=== PATIENT | female | born 1965 | race Caucasian/White ===

== ENCOUNTER 2016-07-15 08:39 | Emergency (ER) | payer MEDICAID ==
[2016-07-15] MEDS ORDERED: PREDNISONE 20 MG TABLET PO ONE (09:36)
[2016-07-15] MEDS ORDERED: IPRATROPIUM/ALBUTEROL 0.5-2.5 MG/3 ML AMPUL NEB ONE (09:36)
[2016-07-15] MEDS ORDERED: ALBUTEROL SULFATE 0.083% NEB 2.5 MG/3 ML AMPUL NEB SCH (09:51)
[2016-07-15 10:21] VITALS: BP 118/74
--- NOTE | 2016-07-15 10:24 | ER Document Report ---
ED Medical Screen (RME) - General Chief Complaint: Cough Stated Complaint: HEADACHE AND COUGHING UP BLOOD Information source: Patient Notes: Patient reports three-day history of cough and headache. Patient complains of right-sided lung pain. Patient has had some hemoptysis. No fever. hx: Asthma, COPD I have greeted and performed a rapid initial assessment of this patient. A comprehensive ED assessment and evaluation of the patient, analysis of test results and completion of the medical decision making process will be conducted by additional ED providers. TRAVEL OUTSIDE OF THE [place] IN LAST 30 DAYS: No - Related Data Allergies/Adverse Reactions: etodolac [Etodolac] Allergy (Verified 07/15/16 08:55) naproxen [Naproxen] Allergy (Verified 07/15/16 08:55) NSAIDS (Non-Steroidal Anti-Inflamma [Nsaids] Allergy (Verified 07/15/16 08:55) Sulfa (Sulfonamide Antibiotics) Allergy (Verified 07/15/16 08:55) Past Medical History - Social History Chew tobacco use (# tins/day): Yes Drug Abuse: None - Past Medical History Cardiac Medical History: Reports: Hx Heart Attack - at age 24, Hx Hypertension Pulmonary Medical History: Reports: Hx Asthma, Hx COPD Renal/ Medical History: Denies: Hx Peritoneal Dialysis Past Surgical History: Reports: Hx Abdominal Surgery, Hx Section, Hx Cholecystectomy, Hx Hysterectomy, Hx Tubal Ligation - Immunizations Hx Diphtheria, Pertussis, Tetanus Vaccination: Yes Physical Exam - Vital signs Vitals: Temp Pulse Resp BP Pulse Ox 98.2 F 82 24 H 139/73 H 95 07/15/16 08:47 07/15/16 08:47 07/15/16 08:47 07/15/16 08:47 07/15/16 08:47 - Respiratory Respiratory status: No respiratory distress Breath sounds: Nonproductive cough, Rhonchi Course - Vital Signs Vital signs: Temp Pulse Resp BP Pulse Ox 98.2 F 82 16 118/74 98 07/15/16 08:47 07/15/16 10:21 07/15/16 10:21 07/15/16 10:21 07/15/16 10:21
--- NOTE | 2016-07-15 11:00 | ER Document Report ---
ED General - General Chief Complaint: Cough Stated Complaint: HEADACHE AND COUGHING UP BLOOD TRAVEL OUTSIDE OF THE [place] IN LAST 30 DAYS: No - HPI Patient complains to provider of: cough Notes: Patient reports three-day history of cough and headache. Patient complains of right-sided lung pain. Patient has had some small streaks of blood in her sputum and coughing. Patient is a smoker. Patient states that she continues to smoke. Denies any recent travel denies any recent antibiotics. Denies any other past medical history is a for COPD or asthma - Related Data Allergies/Adverse Reactions: etodolac [Etodolac] Allergy (Verified 07/15/16 08:55) naproxen [Naproxen] Allergy (Verified 07/15/16 08:55) NSAIDS (Non-Steroidal Anti-Inflamma [Nsaids] Allergy (Verified 07/15/16 08:55) Sulfa (Sulfonamide Antibiotics) Allergy (Verified 07/15/16 08:55) Past Medical History - General Information source: Patient - Social History Smoking Status: Current Every Day Smoker Chew tobacco use (# tins/day): Yes Drug Abuse: None Family History: Reviewed & Not Pertinent Patient has suicidal ideation: No Patient has homicidal ideation: No - Past Medical History Cardiac Medical History: Reports: Hx Heart Attack - at age 24, Hx Hypertension Pulmonary Medical History: Reports: Hx Asthma, Hx COPD Renal/ Medical History: Denies: Hx Peritoneal Dialysis Past Surgical History: Reports: Hx Abdominal Surgery, Hx Section, Hx Cholecystectomy, Hx Hysterectomy, Hx Tubal Ligation - Immunizations Hx Diphtheria, Pertussis, Tetanus Vaccination: Yes Review of Systems - Review of Systems Constitutional: No symptoms reported EENT: No symptoms reported Cardiovascular: No symptoms reported Respiratory: Cough, Short of breath Gastrointestinal: No symptoms reported Genitourinary: No symptoms reported Female Genitourinary: No symptoms reported Musculoskeletal: No symptoms reported Skin: No symptoms reported Hematologic/Lymphatic: No symptoms reported Neurological/Psychological: No symptoms reported -: Yes All other systems reviewed and negative Physical Exam - Vital signs Vitals: Temp Pulse Resp BP Pulse Ox 98.2 F 82 24 H 139/73 H 95 07/15/16 08:47 07/15/16 08:47 07/15/16 08:47 07/15/16 08:47 07/15/16 08:47 Interpretation: Normal - General General appearance: Appears well, Alert - HEENT Head: Normocephalic, Atraumatic Eyes: Normal Pupils: PERRL - Respiratory Respiratory status: No respiratory distress Chest status: Nontender Breath sounds: Normal Chest palpation: Normal - Cardiovascular Rhythm: Regular Heart sounds: Normal auscultation Murmur: No - Abdominal Inspection: Normal Distension: No distension Bowel sounds: Normal Tenderness: Nontender Organomegaly: No organomegaly - Back Back: Normal, Nontender - Extremities General upper extremity: Normal inspection, Nontender, Normal color, Normal ROM , Normal temperature General lower extremity: Normal inspection, Nontender, Normal color, Normal ROM , Normal temperature, Normal weight bearing. No: Moises's sign - Neurological Neuro grossly intact: Yes Cognition: Normal Orientation: AAOx4 [place] Coma Scale Eye Opening: Spontaneous Lisa Coma Scale Verbal: Oriented Lisa Coma Scale Motor: Obeys Commands [place] Coma Scale Total: 15 Speech: Normal Motor strength normal: LUE, RUE, LLE, RLE Sensory: Normal - Psychological Associated symptoms: Normal affect, Normal mood - Skin Skin Temperature: Warm Skin Moisture: Dry Skin Color: Normal Course - Re-evaluation Re-evalutation: 07/15/16 20:53 Patient's examination is consistent with bronchitis. This x-ray is negative for pneumonia. At this time low suspicion for PE. Patient will be discharged home follow-up her primary care physician. - Vital Signs Vital signs: Temp Pulse Resp BP Pulse Ox 98.2 F 82 16 118/74 98 07/15/16 08:47 07/15/16 10:21 07/15/16 10:21 07/15/16 10:21 07/15/16 10:21 Discharge - Discharge Clinical Impression: Bronchitis Condition: Good Disposition: HOME, SELF-CARE Instructions: Bronchitis ([facility]) Additional Instructions: Exam today is consistent with bronchitis. Please follow-up primary care physician Prescriptions: Albuterol Sulfate [Albuterol Sulfate 2.5mg/3 mL] 2.5 mg IH Q4 #30 ml Prednisone [Deltasone 20 mg Tablet] 3 tab PO DAILY 5 Days Forms: Return to Work Referrals: ROB ALVARADO MD [Primary Care Provider] - Follow up as needed
--- NOTE | 2016-07-15 13:24 | EKG REPORT ---
SEVERITY:- ABNORMAL ECG - SINUS RHYTHM INFERIOR INFARCT, OLD : Confirmed by: Elliot Johnston MD 15-Jul-2016 13:23:21
== END 2016-07-15 11:05 | disposition home or self-care (01) ==
LOC: ER 08:39
DX: J40 Bronchitis, not specified as acute or chronic (principal); R05 Cough; R51 Headache; R07.89 Other chest pain; F17.210 Nicotine dependence, cigarettes, uncomplicated
CPT/HCPCS: 93005; 94640; 99283; 71020; 93010; J7512; J7620

== ENCOUNTER 2016-09-12 06:26 | Emergency (ER) | payer MEDICAID ==
--- NOTE | 2016-09-12 08:00 | ER Document Report ---
ED General - General Chief Complaint: Leg Injury Stated Complaint: RIGHT LEG AND FOOT INJURY TRAVEL OUTSIDE OF THE [place] IN LAST 30 DAYS: No - HPI Patient complains to provider of: right leg injury Notes: Patient coming in with right leg injury complaining of pain right foot right ankle and right proximal tib-fib. Patient states that she tripped and fell over a house tiedown in the yard. Denies any loss consciousness denies any other injuries. - Related Data Allergies/Adverse Reactions: etodolac [Etodolac] Allergy (Verified 09/12/16 06:39) naproxen [Naproxen] Allergy (Verified 09/12/16 06:39) NSAIDS (Non-Steroidal Anti-Inflamma [Nsaids] Allergy (Verified 09/12/16 06:39) Sulfa (Sulfonamide Antibiotics) Allergy (Verified 09/12/16 06:39) Past Medical History - Social History Smoking Status: Current Some Day Smoker Chew tobacco use (# tins/day): - 30 Frequency of alcohol use: Occasional Drug Abuse: None Family History: Reviewed & Not Pertinent Patient has suicidal ideation: No Patient has homicidal ideation: No - Past Medical History Cardiac Medical History: Reports: Hx Heart Attack - at age 24, Hx Hypertension Pulmonary Medical History: Reports: Hx Asthma, Hx COPD Renal/ Medical History: Denies: Hx Peritoneal Dialysis Past Surgical History: Reports: Hx Abdominal Surgery, Hx Section, Hx Cholecystectomy, Hx Hysterectomy, Hx Tubal Ligation - Immunizations Hx Diphtheria, Pertussis, Tetanus Vaccination: Yes Review of Systems - Review of Systems Constitutional: No symptoms reported EENT: No symptoms reported Cardiovascular: No symptoms reported Respiratory: No symptoms reported Gastrointestinal: No symptoms reported Genitourinary: No symptoms reported Female Genitourinary: No symptoms reported Musculoskeletal: Other - Right ankle pain right foot pain right lower leg pain Skin: No symptoms reported Hematologic/Lymphatic: No symptoms reported Neurological/Psychological: No symptoms reported Physical Exam - Vital signs Vitals: Temp Pulse Resp BP Pulse Ox 97.8 F 90 20 163/94 H 96 09/12/16 06:34 09/12/16 06:34 09/12/16 06:34 09/12/16 06:34 09/12/16 06:34 Interpretation: Normal - General General appearance: Appears well, Alert - HEENT Head: Normocephalic, Atraumatic Eyes: Normal Pupils: PERRL - Respiratory Respiratory status: No respiratory distress Chest status: Nontender Breath sounds: Normal Chest palpation: Normal - Cardiovascular Rhythm: Regular Heart sounds: Normal auscultation Murmur: No - Abdominal Inspection: Normal Distension: No distension Bowel sounds: Normal Tenderness: Nontender Organomegaly: No organomegaly - Back Back: Normal, Nontender - Extremities General upper extremity: Normal inspection, Nontender, Normal color, Normal ROM , Normal temperature General lower extremity: Nontender, Normal color, Normal ROM, Normal temperature , Normal weight bearing. No: Normal inspection - Swelling to the right lateral malleolus pain to palpation base of the fifth pain to palpation of the proximal fibula. No deformities Refill is intact distal to injuries, Moises's sign - Neurological Neuro grossly intact: Yes Cognition: Normal Orientation: AAOx4 Lisa Coma Scale Eye Opening: Spontaneous Lisa Coma Scale Verbal: Oriented Lisa Coma Scale Motor: Obeys Commands [place] Coma Scale Total: 15 Speech: Normal Motor strength normal: LUE, RUE, LLE, RLE Sensory: Normal - Psychological Associated symptoms: Normal affect, Normal mood - Skin Skin Temperature: Warm Skin Moisture: Dry Skin Color: Normal Course - Re-evaluation Re-evalutation: 09/12/16 08:20 X-rays are negative patient will be placed in Holland wrap for ankle Lidoderm patch will be applied patient will have a prescription for Ultram for very severe pain. Patient's follow-up primary care physician pain continues. - Vital Signs Vital signs: Temp Pulse Resp BP Pulse Ox 97.8 F 90 20 163/94 H 96 09/12/16 06:45 09/12/16 06:45 09/12/16 06:45 09/12/16 06:45 09/12/16 06:45 Discharge - Discharge Clinical Impression: Right leg injury Qualifiers: Encounter type: initial encounter Qualified Code(s): S89.91XA - Unspecified injury of right lower leg, initial encounter Right ankle sprain Qualifiers: Encounter type: initial encounter Involved ligament of ankle: other ligament Qualified Code(s): S93.491A - Sprain of other ligament of right ankle, initial encounter Condition: Good Disposition: HOME, SELF-CARE Instructions: Ice Packs ([facility]), Oral Narcotic Medication ([facility]), Sprained Ankle ( [facility]), [place] Wrap ([facility]) Additional Instructions: Follow-up with your primary care physician. Take medications as prescribed Prescriptions: Tramadol HCl [Ultram 50 mg Tablet] 50 mg PO ASDIR PRN #20 tablet PRN Reason: Forms: Return to Work
[2016-09-12] MEDS ORDERED: LIDOCAINE 5% (700 MG) TRANSDERMAL ADH..PATCH TP ONE (08:17)
[2016-09-12 08:45] VITALS: BP 150/82
== END 2016-09-12 08:46 | disposition home or self-care (01) ==
LOC: ER 06:26
DX: S93.491A Sprain of other ligament of right ankle, initial encounter (principal); S89.91XA Unspecified injury of right lower leg, initial encounter; F17.210 Nicotine dependence, cigarettes, uncomplicated; W01.0XXA Fall on same level from slipping, tripping and stumbling without subsequent striking against object, initial encounter; Y92.007 Garden or yard of unspecified non-institutional (private) residence as the place of occurrence of the external cause; J44.9 Chronic obstructive pulmonary disease, unspecified; I10 Essential (primary) hypertension; Z90.49 Acquired absence of other specified parts of digestive tract; Z90.710 Acquired absence of both cervix and uterus; Z88.2 Allergy status to sulfonamides; I25.2 Old myocardial infarction
CPT/HCPCS: 99283; 73610; 73620; 73590; J3490

== ENCOUNTER 2017-01-22 12:35 | Emergency (ER) | payer SELFPAY ==
--- NOTE | 2017-01-22 13:12 | ER Document Report ---
ED Fall - General Chief Complaint: Fall Stated Complaint: FALL BACK PAIN Time Seen by Provider: 01/22/17 13:09 Mode of Arrival: Wheelchair Information source: Patient Notes: Pt is a 51 year old female who presents to the ER today for right foot and ankle pain, low back pain after falling down some steps and landing in some flower pots on her right side yesterday. She states she lost her footing and fell. She states she has broken this ankle in the past. TRAVEL OUTSIDE OF THE [place] IN LAST 30 DAYS: Yes COUNTRY TRAVELED TO/FROM: [place] - Related data Allergies/Adverse Reactions: etodolac [Etodolac] Allergy (Verified 01/22/17 12:50) naproxen [Naproxen] Allergy (Verified 01/22/17 12:50) NSAIDS (Non-Steroidal Anti-Inflamma [Nsaids] Allergy (Verified 01/22/17 12:50) Sulfa (Sulfonamide Antibiotics) Allergy (Verified 01/22/17 12:50) Past Medical History - General Information source: Patient - Social History Smoking Status: Current Every Day Smoker Family History: Reviewed & Not Pertinent - Past Medical History Cardiac Medical History: Reports: Hx Heart Attack - at age 24, Hx Hypertension Pulmonary Medical History: Reports: Hx Asthma, Hx COPD Renal/ Medical History: Denies: Hx Peritoneal Dialysis Past Surgical History: Reports: Hx Abdominal Surgery, Hx Section, Hx Cholecystectomy, Hx Hysterectomy, Hx Tubal Ligation - Immunizations Hx Diphtheria, Pertussis, Tetanus Vaccination: Yes Review of Systems - Review of Systems Constitutional: No symptoms reported EENT: No symptoms reported Cardiovascular: No symptoms reported Respiratory: No symptoms reported Gastrointestinal: No symptoms reported Genitourinary: No symptoms reported Female Genitourinary: No symptoms reported Musculoskeletal: See HPI Skin: No symptoms reported Hematologic/Lymphatic: No symptoms reported Neurological/Psychological: No symptoms reported Physical Exam - Vital signs Vitals: Temp Pulse Resp BP Pulse Ox 98.6 F 92 22 H 141/78 H 95 01/22/17 12:50 01/22/17 12:50 01/22/17 12:50 01/22/17 12:50 01/22/17 12:50 - Notes Notes: PHYSICAL EXAMINATION: GENERAL: uncomfortable, but in no acute distress. HEAD: Atraumatic, normocephalic. EYES: Pupils equal round and reactive to light, extraocular movements intact, sclera anicteric, conjunctiva are normal. NECK: Normal range of motion, supple without lymphadenopathy LUNGS: cough, mild wheezes throughout, no rales or rhonchi. HEART: Regular rate and rhythm without murmurs ABDOMEN: Soft, no tenderness. No guarding, no rebound BACK: lumbar vertebral tenderness, normal ROM but with pain GI/: no CVA tenderness EXTREMITIES: Normal range of motion, no pitting edema. No cyanosis. NEUROLOGICAL: Cranial nerves grossly intact. Normal sensory/motor exams. PSYCH: Normal mood, normal affect. SKIN: Warm, Dry, normal turgor, ecchymoses to dorsum of right foot laterally, tender over dorsum of right foot and lateral malleolus Course - Re-evaluation Re-evalutation: 01/22/17 20:23 x rays negative today, pt placed in post op shoe for comfort, in room she was having to catch her breath after every sentence, she then admitted this has been going on with productive cough for 1 month now. She has copd and has an inhaler that she uses but isn't helping. I gave her breathing treatment here and sent her home with abx and prednisone. - Vital Signs Vital signs: Temp Pulse Resp BP Pulse Ox 98.0 F 83 17 120/74 99 01/22/17 15:27 01/22/17 15:27 01/22/17 15:27 01/22/17 15:27 01/22/17 15:27 Procedures - Immobilization Right Foot Time completed: 15:00 Pre-Proc Neuro Vasc Exam: Normal Immobilizer type: Post-op shoe Performed by: AISSATOU Post-Proc Neuro Vasc Exam: Normal Alignment checked and good: Yes Discharge - Discharge Clinical Impression: COPD exacerbation Low back pain Qualifiers: Chronicity: acute Back pain laterality: midline Sciatica presence: without sciatica Qualified Code(s): M54.5 - Low back pain Right foot injury Qualifiers: Encounter type: initial encounter Qualified Code(s): S99.921A - Unspecified injury of right foot, initial encounter Condition: Stable Disposition: HOME, SELF-CARE Additional Instructions: FOLLOW-UP CARE: If you have been referred to a physician for follow-up care, call the physician s office for an appointment as you were instructed or within the next two days. If you experience worsening or a significant change in your symptoms, notify the physician immediately or return to the Emergency Department at any time for re-evaluation. Prescriptions: Azithromycin [Zithromax 250 mg Tablet] 250 mg PO ASDIR PRN #6 tablet PRN Reason: Cyclobenzaprine HCl [Flexeril 10 mg Tablet] 10 mg PO TIDP PRN #15 tab PRN Reason:
[2017-01-22] MEDS ORDERED: OXYCODONE-ACETAMINOPHEN 5-325 MG TABLET PO ONE (14:48)
[2017-01-22] MEDS ORDERED: IPRATROPIUM/ALBUTEROL 0.5-2.5 MG/3 ML AMPUL NEB ONE (14:48)
[2017-01-22] MEDS ORDERED: AZITHROMYCIN 250 MG TABLET PO ONE (14:49)
[2017-01-22] MEDS ORDERED: CYCLOBENZAPRINE HCL 10 MG TABLET PO ONE (14:49)
[2017-01-22] MEDS ORDERED: LIDOCAINE 5% (700 MG) TRANSDERMAL ADH..PATCH TP ONE (15:23)
[2017-01-22 15:32] VITALS: BP 120/74
--- NOTE | 2017-01-23 15:00 | RADIOLOGY REPORT (SQ) ---
EXAM DESCRIPTION: ANKLE RIGHT COMPLETE; FOOT RIGHT COMPLETE; L SPINE WHOLE COMPLETED DATE/TIME: Right ankle three views, right foot three views, lumbar spine five views REASON FOR STUDY: Fall injury pain COMPARISON: Right ankle films 09/12/2016, 04/13/2016 TECHNIQUE: Right ankle three views Right foot three views Lumbar spine five views LIMITATIONS: None FINDINGS: Right ankle three views: Normal bone density. No acute fracture or malalignment. Old healed right distal fibular metaphysis fracture. No ankle joint effusion. Node disruption of the ankle mortise. Right foot three views: Normal bone density. No acute fracture or malalignment. Specifically, no f racture at the base of the 5th metatarsal is identified. No soft tissue swelling. No radiopaque for eign body. No plantar calcaneal spur. Mild osteoarthritis great toe interphalangeal joint. Lumbar spine five views: Normal bone density. No lumbar vertebral body compression fracture. Minimal disc space loss of heig ht at L5-S1. Advanced bilateral facet arthropathy at L4-5 and L5-S1. Bilateral SI joint sclerosis. Clips right upper quadrant post cholecystectomy. IMPRESSION: Right ankle three views: No acute changes. Old healed right lateral malleolar fracture. Right foot three views: No acute changes Lumbar spine five views: No acute changes
== END 2017-01-22 15:28 | disposition home or self-care (01) ==
LOC: ER 12:35
DX: S90.31XA Contusion of right foot, initial encounter (principal); M79.671 Pain in right foot; M25.571 Pain in right ankle and joints of right foot; M54.5 Low back pain; W10.9XXA Fall (on) (from) unspecified stairs and steps, initial encounter; J44.1 Chronic obstructive pulmonary disease with (acute) exacerbation; R05 Cough; I10 Essential (primary) hypertension; I25.2 Old myocardial infarction; Z87.81 Personal history of (healed) traumatic fracture; Z88.8 Allergy status to other drugs, medicaments and biological substances; Z88.2 Allergy status to sulfonamides; F17.200 Nicotine dependence, unspecified, uncomplicated
CPT/HCPCS: 94640; 99283; 73610; 73630; 72110; J7620

== ENCOUNTER 2017-03-17 08:12 | Emergency (ER) | payer MEDICAID ==
[2017-03-17] MEDS ORDERED: LORATADINE 10 MG TABLET PO ONE (09:26)
[2017-03-17] MEDS ORDERED: PREDNISONE 20 MG TABLET PO ONE (09:26)
[2017-03-17] MEDS ORDERED: FAMOTIDINE 20 MG TABLET PO ONE (09:26)
--- NOTE | 2017-03-17 09:27 | ER Document Report ---
HPI - HPI Patient complains to provider of: Allergic reaction Onset: This morning Onset/Duration: Sudden Quality of pain: Other - Itchy Severity: Moderate Pain Level: 4 Context: Patient states she woke up this morning with a hives that are very itchy. Denies any new foods or lotions that may have caused the reaction. Rash is to face and neck. Patient denies any difficulty breathing. Associated Symptoms: None Exacerbated by: Denies Relieved by: Denies Similar symptoms previously: Yes Recently seen / treated by doctor: No - ROS ROS below otherwise negative: Yes Systems Reviewed and Negative: Yes All other systems reviewed and negative - CONSTITUTIONAL Constitutional: DENIES: Fever - EENT EENT: DENIES: Sore Throat, Congestion - NEURO Neurology: DENIES: Headache - CARDIOVASCULAR Cardiovascular: DENIES: Chest pain - RESPIRATORY Respiratory: DENIES: Trouble Breathing, Coughing - GASTROINTESTINAL Gastrointestinal: DENIES: Abdominal Pain - URINARY Urinary: DENIES: Dysuria - REPRODUCTIVE Reproductive: DENIES: : - DERM Skin Color: Erythema Past Medical History - General Information source: Patient - Social History Smoking Status: Current Every Day Smoker Cigarette use (# per day): Yes Frequency of alcohol use: Occasional Drug Abuse: Marijuana - Patient states she last smoked marijuana yesterday. Lives with: Family Family History: Reviewed & Not Pertinent - Past Medical History Cardiac Medical History: Reports: Hx Heart Attack - at age 24, Hx Hypertension Pulmonary Medical History: Reports: Hx Asthma, Hx COPD Past Surgical History: Reports: Hx Abdominal Surgery, Hx Section, Hx Cholecystectomy, Hx Hysterectomy, Hx Tubal Ligation - Immunizations Hx Diphtheria, Pertussis, Tetanus Vaccination: Yes Vertical Provider Document - CONSTITUTIONAL Agree With Documented VS: Yes Exam Limitations: No Limitations General Appearance: WD/WN, No Apparent Distress - INFECTION CONTROL TRAVEL OUTSIDE OF THE [place]. IN LAST 30 DAYS: No COUNTRY TRAVELED TO/FROM: [place] - [facility] HEENT: Atraumatic, Normal ENT Exam, Normocephalic - NECK Neck: Normal Inspection - RESPIRATORY Respiratory: Breath Sounds Normal, No Respiratory Distress O2 Sat by Pulse Oximetry: 98 - CARDIOVASCULAR Cardiovascular: Regular Rate, Regular Rhythm - GI/ABDOMEN Gastrointestinal: Abdomen Soft - MUSCULOSKELETAL/EXTREMETIES Musculoskeletal/Extremeties: MAEW - NEURO Level of Consciousness: Awake, Alert, Appropriate - DERM Integumentary: Warm, Dry, Rash - Hives noted to face and neck. Course - Vital Signs Vital signs: Temp Pulse Resp BP Pulse Ox 98.6 F 77 14 167/87 H 98 03/17/17 08:38 03/17/17 08:38 03/17/17 08:38 03/17/17 08:38 03/17/17 08:38 Discharge - Discharge Clinical Impression: Hives Condition: Good Disposition: HOME, SELF-CARE Additional Instructions: Take meds as prescribed, start prednisone TOMORROW AM, you were given todays dose in the ER. Try to identify possible cause for the hives return for any breathing difficulty. Prescriptions: Famotidine [Pepcid 20 mg Tablet] 20 mg PO DAILY #14 tablet Hydrocortisone/Oatmeal/Aloe/E [Hydrocortisone 1% Cream] 28.4 gm TP BID #1 cream.gm. Hydroxyzine Pamoate [Vistaril 25 mg Capsule] 25 mg PO DAILY #30 capsule Prednisone [Deltasone 10 mg Tablet] 10 mg PO ASDIR PRN #21 tablet PRN Reason:
[2017-03-17] MEDS ORDERED: IPRATROPIUM/ALBUTEROL 0.5-2.5 MG/3 ML AMPUL NEB ONE (10:20)
[2017-03-17 11:11] VITALS: BP 167/79
== END 2017-03-17 11:10 | disposition home or self-care (01) ==
LOC: ER 08:12
DX: L50.9 Urticaria, unspecified (principal); F17.210 Nicotine dependence, cigarettes, uncomplicated; I10 Essential (primary) hypertension; J44.9 Chronic obstructive pulmonary disease, unspecified; I25.2 Old myocardial infarction; Z90.49 Acquired absence of other specified parts of digestive tract; Z90.710 Acquired absence of both cervix and uterus
CPT/HCPCS: 94640; 99282; J3490 ×2; J7512; J7620

== ENCOUNTER → 2017-03-27 | Outpatient (CLI) | payer MEDICAID ==
--- NOTE | 2017-03-27 16:14 | WOMENS IMAGING REPORT ---
EXAM DESCRIPTION: BILAT SCREENING MAMMO W/CAD COMPLETED DATE/TIME: 03/27/2017 3:02 pm REASON FOR STUDY: SCREENING MAMMO Z12.31 ENCNTR SCREEN MAMMOGRAM FOR MALIGNANT NEOPLASM OF JOHNATHAN COMPARISON: None. TECHNIQUE: Standard craniocaudal and mediolateral oblique views of each breast recorded using digita l acquisition. LIMITATIONS: None. FINDINGS: No masses, calcifications or architectural distortion. No areas of suspicion. Read with the assistance of CAD. .[facility] - R2 Cenova Version 1.3 .[facility] Imaging - R2 Cenova Version 1.3 .[facility] - R2 Cenova Version 2.4 .[facility] [place] - R2 Cenova Version 2.4 .[facility] - R2 Preschool Teacher Version 9.2 IMPRESSION: NORMAL MAMMOGRAM. BIRADS 1. BREAST DENSITY: b. There are scattered areas of fibroglandular density. BIRAD: 1 NEGATIVE RECOMMENDATION: ROUTINE SCREENING COMMENT: The patient has been notified of the results by letter per SA requirements. Additional no tification policies are in place for contacting patient with suspicious or incomplete findings. Quality ID #[id number]: The [place] [employer] recommends an annual screening mammogram for women aged 40 years or over. This facility utilizes a reminder system to ensure that all patients receive reminder letters, and/or direct phone calls for appointments. This includes reminders for routine scr eening mammograms, diagnostic mammograms, or other Breast Imaging Interventions when appropriate. Th is patient will be placed in the appropriate reminder system. The [place] [employer] (ACR) has developed recommendations for screening MRI of the breast s in certain patient populations, to be used in conjunction with mammography. Breast MRI surveillanc e may be appropriate for women with more than 20% lifetime risk of developing breast cancer as deter mined by genetic testing, significant family history of the disease, or history of mantle radiation f or Hodgkins Disease. ACR Practice Guidelines 2008. TECHNICAL DOCUMENTATION: FINDING NUMBER: (1) ASSESSMENT: (1) JOB ID: [id number] [employer]- All Rights Reserved
== END ==
LOC: WI 14:54
PROVIDERS: ATTEND Internal Medicine
DX: Z12.31 Encounter for screening mammogram for malignant neoplasm of breast (principal)
CPT/HCPCS: 77067; G0202

== ENCOUNTER → 2018-09-20 | Outpatient (CLI) | payer MEDICAID ==
--- NOTE | 2018-09-20 11:29 | RADIOLOGY REPORT (SQ) ---
EXAM DESCRIPTION: C SP 4 OR 5 VIEWS COMPLETED DATE/TIME: 09/20/2018 10:36 am REASON FOR STUDY: OTHER CERVICAL DISC DEGENERATION, [facility] CERVICAL REGION M50.30 OTHER CERVICAL DISC DEGENERATION, [facility] CERVICAL REGIO COMPARISON: 07/20/2012 NUMBER OF VIEWS: Five views. TECHNIQUE: AP, lateral, obliques and odontoid radiographic images acquired of the cervical spine. LIMITATIONS: None. FINDINGS: MINERALIZATION: Normal. ALIGNMENT: Anatomic. VERTEBRAE: Vertebral bodies of normal height. DISCS: Prior fusion at C5-C6, stable finding. Mild disc space narrow C4-C5 and moderate severe to m arked disc space narrowing at C6-C7, unchanged findings. FORAMINA: Mild to moderate foraminal narrowing at C5-C6 on the right. Moderate to moderate severe f oraminal narrowing at C3-C4, C4-C5 and C5-C6 on the left, with posterior osteophytes and facet arthro sis encroaching on the foramina. LATERAL AND POSTERIOR ELEMENTS: Multilevel facet arthrosis C2-C3 through C4-C5. The lateral masses and spinous processes without significant findings. HARDWARE: None in the spine. SOFT TISSUES: No masses or calcifications. Lung apices clear. OTHER: No other significant finding. IMPRESSION: 1. No significant interval changes since the prior examination dated 07/20/2012. Prior surgical changes and fusion at C5-C6. 2. Stable mild disc space narrowing at C4-C5 and moderate sev ere to marked changes at C6-C7. 3. Bilateral foraminal narrowing as above, more so on the left. 4. No acute osseous findings. TECHNICAL DOCUMENTATION: JOB ID: [id number] [employer]- All Rights Reserved Reading location - IP/workstation name: [email or web address]
== END ==
LOC: OD 10:06
PROVIDERS: ATTEND Family Medicine
DX: M50.30 Other cervical disc degeneration, unspecified cervical region (principal)
CPT/HCPCS: 72050

== ENCOUNTER → 2018-12-22 | Outpatient (CLI) | payer MEDICAID ==
--- NOTE | 2018-12-22 13:45 | RADIOLOGY REPORT (SQ) ---
EXAM DESCRIPTION: CHEST 2 VIEWS COMPLETED DATE/TIME: 12/22/2018 10:58 am REASON FOR STUDY: J40 BRONCHITIS, NOT SPECIFIED ACUTE OR CHRONIC COMPARISON: None. EXAM PARAMETERS: NUMBER OF VIEWS: two views TECHNIQUE: Digital Frontal and Lateral radiographic views of the chest acquired. RADIATION DOSE: NA LIMITATIONS: none FINDINGS: LUNGS AND PLEURA: No opacities, masses or pneumothorax. No pleural effusion. MEDIASTINUM AND HILAR STRUCTURES: No masses or contour abnormalities. HEART AND VASCULAR STRUCTURES: Heart normal size. No evidence for failure. BONES: No acute findings. HARDWARE: None in the chest. OTHER: No other significant finding. IMPRESSION: NO ACUTE RADIOGRAPHIC FINDING IN THE CHEST. TECHNICAL DOCUMENTATION: JOB ID: [id number] [employer]- All Rights Reserved Reading location - IP/workstation name: [email or web address]
== END ==
LOC: RAD 10:27
PROVIDERS: ATTEND Family Medicine
DX: J40 Bronchitis, not specified as acute or chronic (principal)
CPT/HCPCS: 71046

== ENCOUNTER → 2018-12-28 | Outpatient (CLI) | payer MEDICAID ==
--- NOTE | 2018-12-28 12:24 | RADIOLOGY REPORT (SQ) ---
EXAM DESCRIPTION: CT ABD/PELVIS ORAL ONLY COMPLETED DATE/TIME: 12/28/2018 10:18 am REASON FOR STUDY: VENTRAL HERNIA WO OBSTRUCTION OR GANGRENE (K43.9) K43.9 VENTRAL HERNIA WITHOUT OB STRUCTION OR GANGRENE COMPARISON: None. TECHNIQUE: CT scan of the abdomen and pelvis performed with oral contrast and no intravenous contras t. Images reviewed with lung, soft tissue, and bone windows. Reconstructed coronal and sagittal MPR i mages reviewed. All images stored on PACS. All CT scanners at this facility use dose modulation, iterative reconstruction, and/or weight based d osing when appropriate to reduce radiation dose to as low as reasonably achievable (ALARA). [facility]: Dose Right [facility]: CareDose [facility]: Dose Right [facility]: Teradose 4D [facility]: [employer] RADIATION DOSE: mGy. LIMITATIONS: None. FINDINGS: LOWER CHEST: No significant findings. No nodules or infiltrates. NON-CONTRASTED LIVER, SPLEEN, ADRENALS: Evaluation limited by lack of IV contrast. No identified sign ificant masses. PANCREAS: No masses. No peripancreatic inflammatory changes. GALLBLADDER: Surgically absent. RIGHT KIDNEY AND URETER: No solid masses. No significant calcification. No hydronephrosis or hydroure ter. LEFT KIDNEY AND URETER: No solid masses. No significant calcification. No hydronephrosis or hydrouret er. AORTA AND RETROPERITONEUM: No aneurysm. No retroperitoneal masses or adenopathy. BOWEL AND PERITONEAL CAVITY: Stomach looks mildly thick-walled, but this may be technique related. D ecompressed colon throughout. No suspicion for mass. No active inflammatory changes. No small ray l obstruction. No ascites or abnormal gas. APPENDIX: Normal. PELVIS, BLADDER, AND ABDOMINAL WALL: No pelvic mass or abnormal fluid. Bladder unremarkable. In the upper midline projecting minimally to the right is a small fat containing hernia. The defect measur es just at 1.4 cm. No inflammatory changes or fluid. No bowel within the hernia. BONES: No significant findings. OTHER: No other significant finding. IMPRESSION: 1. Small fat containing ventral hernia in the upper abdomen. No bowel containing hernia. TECHNICAL DOCUMENTATION: JOB ID: [id number] Quality ID # [id number]: Final reports with documentation of one or more dose reduction techniques (e.g., Au tomated exposure control, adjustment of the mA and/or kV according to patient size, use of iterative reconstruction technique) 2010 [employer]- All Rights Reserved Reading location - IP/workstation name: [email or web address]
== END ==
LOC: RAD 09:50
PROVIDERS: ATTEND Surgery
DX: K43.9 Ventral hernia without obstruction or gangrene (principal)
CPT/HCPCS: 74176

== ENCOUNTER 2019-01-13 08:47 | Day surgery (SDC) | payer MEDICAID ==
[2019-01-13] MEDS: ALBUTEROL SULFATE 0.083% NEB 2.5 MG/3 ML AMPUL NEB ONE ×2 (08:45→09:27)
[~2019-01-13 08:47] MED LIST: BUPIVACAINE HCL 0.25% /EPINEPHRINE INJ/PF 30 ML SDV ONE; CEFAZOLIN 1 GM/D5W RTU 1 GM/50 ML RTUPB IV PRN
[2019-01-13 09:18] LABS: HEMATOCRIT 41.7 % (36.0-47.0); HEMOGLOBIN 14.3 g/dL (12.0-15.5); MEAN CORPUSCULAR HEMOGLOBIN 30.9 pg (27.0-33.4); MEAN CORPUSCULAR HGB CONC 34.2 g/dL (32.0-36.0); MEAN CORPUSCULAR VOLUME 90 fl (80-97); PLATELET COUNT 289 10^3/uL (150-450); RED BLOOD COUNT 4.61 10^6/uL (3.72-5.28); RED CELL DISTRIBUTION WIDTH 13.4 % (11.5-14.0); WHITE BLOOD COUNT 4.6 10^3/uL (4.0-10.5)
[2019-01-13 09:32] LABS: ANION GAP 6 (5-19); BLOOD UREA NITROGEN 19 mg/dL (7-20); CALCIUM 9.2 mg/dL (8.4-10.2); CARBON DIOXIDE 26 mmol/L (22-30); CHLORIDE 109 mmol/L (98-107); GLUCOSE 94 mg/dL (75-110); POTASSIUM 4.1 mmol/L (3.6-5.0)
[2019-01-13] MEDS ORDERED: CEFAZOLIN 1 GM/D5W RTU 1 GM/50 ML RTUPB IV ONE (09:52)
--- NOTE | 2019-01-13 10:09 | RADIOLOGY REPORT (SQ) ---
EXAM DESCRIPTION: CHEST SINGLE VIEW COMPLETED DATE/TIME: 01/13/2019 9:56 am REASON FOR STUDY: PREOP COMPARISON: Two-view chest 12/22/2018, 07/15/2016 EXAM PARAMETERS: NUMBER OF VIEWS: One view. TECHNIQUE: Single frontal radiographic view of the chest acquired. RADIATION DOSE: NA LIMITATIONS: None. FINDINGS: LUNGS AND PLEURA: No opacities, masses or pneumothorax. No pleural effusion. MEDIASTINUM AND HILAR STRUCTURES: No masses. Contour normal. HEART AND VASCULAR STRUCTURES: Heart normal in size. Normal vasculature. BONES: No acute findings. HARDWARE: None in the chest. OTHER: No other significant finding. IMPRESSION: NO ACUTE RADIOGRAPHIC FINDING IN THE CHEST. TECHNICAL DOCUMENTATION: JOB ID: [id number] [employer]- All Rights Reserved Reading location - IP/workstation name: [email or web address]
[2019-01-13] MEDS ORDERED: MIDAZOLAM 2 MG/2 ML INJ ONE ×3 (10:32→13:03)
[2019-01-13] MEDS ORDERED: DEXAMETHASONE SOD PHOS INJ 10 MG/1 ML VIAL ONE (10:32)
[2019-01-13 11:10] LABS: ALBUMIN 4.1 g/dL (3.5-5.0); ALKALINE PHOSPHATASE 44 U/L (38-126); ASPARTATE AMINO TRANSFERASE 22 U/L (14-36); BILIRUBIN,DIRECT 0.3 mg/dL (0.0-0.4); BILIRUBIN,TOTAL 0.5 mg/dL (0.2-1.3); TOTAL PROTEIN 6.5 g/dL (6.3-8.2)
[2019-01-13] MEDS ORDERED: FENTANYL CITRATE INJ/PF 250 MCG/5 ML AMPULE ONE (12:15)
[2019-01-13] MEDS ORDERED: PROPOFOL INJ 200 MG/20 ML VIAL IV ONE (12:16)
[2019-01-13] MEDS ORDERED: BUPIVACAINE INJ/PF LIPOSOME/PF 266 MG/20 ML SDV ONE (12:46)
--- NOTE | 2019-01-13 12:47 | EKG REPORT ---
SEVERITY:- ABNORMAL ECG - SINUS RHYTHM LEFT ANTERIOR FASCICULAR BLOCK : Confirmed by: Elliot Johnston MD 13-Jan-2019 12:46:25
[2019-01-13] MEDS ORDERED: FENTANYL CITRATE INJ/PF 100 MCG/2 ML AMPUL IV PRN ×2 (12:56)
[2019-01-13] MEDS ORDERED: OXYCODONE-ACETAMINOPHEN 5-325 MG TABLET PO PRN ×2 (12:56)
[2019-01-13] MEDS ORDERED: DIPHENHYDRAMINE HCL 50 MG/ML VIAL IV PRN (12:56)
[2019-01-13] MEDS ORDERED: MEPERIDINE HCL/PF INJ 25 MG/1 ML DISP.SYRIN IV PRN (12:56)
[2019-01-13] MEDS ORDERED: PROMETHAZINE HCL INJ 25 MG/1 ML VIAL IV PRN ×2 (12:56)
[2019-01-13] MEDS ORDERED: FENTANYL CITRATE INJ/PF 100 MCG/2 ML AMPUL ONE ×2 (13:03→13:50)
--- NOTE | 2019-01-13 13:15 | Discharge Summary ---
Discharge Summary (SDC) - Discharge Final Diagnosis: incisional hernia Date of Surgery: 01/13/19 Discharge Date: 01/13/19 Condition: Good Referrals: MICHELE BAUMANN MD [Primary Care Provider] - Discharge Diet: As Tolerated Respiratory Treatments at Home: Deep Breathing/Coughing Discharge Activity: Activity As Tolerated, No Lifting Over 10 Pounds, No Lifting/Push/Pulling Report the Following to Your Physician Immediately: Nausea, Vomiting, Increase in Pain, Yellow Skin - Patient is a follow-up with me in 10 to 14 days, Unusual Bleeding
[2019-01-13] MEDS ORDERED: NALOXONE HCL INJ/PF 0.4 MG/1 ML SDV ONE (13:19)
--- NOTE | 2019-01-13 13:19 | Operative Report ---
Nonrecallable Operative Report DATE OF SURGERY: 01/13/19 PREOPERATIVE DIAGNOSIS: Incisional hernia POSTOPERATIVE DIAGNOSIS: Incisional hernia OPERATION: Incisional hernia repair SURGEON: FRANCISCA ALICIA ANESTHESIA: GA TISSUE REMOVED OR ALTERED: None COMPLICATIONS: None ESTIMATED BLOOD LOSS: 5 cc INTRAOPERATIVE FINDINGS: 2 cm incisional hernia PROCEDURE: Patient was brought to the operating room and awake alert stable condition placed in the upper table supine position induced general anesthesia intubated the abdomen was prepped and draped in usual sterile manner for the procedure just below a laparoscopic epigastric scar where the hernia was palpated a longitudinal incision was made approximately 6 cm long dissection was carried down through subcutaneous tissue with Bovie cautery through the fatty tissue to identify the anterior rectus fascia just to the right of the midline there was a hernia sac was dissected from the surrounding tissue excised at its base noted a 2 cm incisional hernia from a previous port site it was closed with #1-0 Vicryl in an interrupted fashion. The fascia around the hernia was then was anesthetized with Exparel subcutaneous tissue was then reapproximated with interrupted 3-0 Vicryl the skin was reapproximated intracuticular 3-0 Biosyn Steri-Strips completed the procedure estimated blood loss was less than 5 cc sponge needle counts correct x2 patient was awakened in the operating explained transferred recovery in stable condition no complications
[2019-01-13] MEDS ORDERED: DEXAMETHASONE SOD PHOSPHATE INJ 4 MG/1 ML VIAL ONE (13:30)
[2019-01-13] MEDS ORDERED: LIDOCAINE 2% INJ-PF (20 MG/ML) 2 ML AMPUL ONE (13:30)
[2019-01-13] MEDS ORDERED: GLYCOPYRROLATE 1 MG/5 ML VIAL ONE (13:30)
[2019-01-13] MEDS ORDERED: NEOSTIGMINE METHYLSULFATE 10 MG/10 ML VIAL ONE (13:30)
[2019-01-13] MEDS ORDERED: ROCURONIUM BROMIDE INJ 50 MG/5 ML VIAL IV ONE (13:30)
[2019-01-13] MEDS ORDERED: ONDANSETRON HCL INJ/PF 4 MG/2 ML SDV ONE (13:30)
[2019-01-13] MEDS: FENTANYL CITRATE INJ/PF 100 MCG/2 ML AMPUL IV PRN ×2 (13:49→14:03)
[2019-01-13] MEDS ORDERED: IPRATROPIUM/ALBUTEROL 0.5-2.5 MG/3 ML AMPUL NEB ONE (13:59)
[2019-01-13 15:33] VITALS: BP 140/87
== END 2019-01-13 15:36 | disposition home or self-care (01) ==
LOC: OROUT 08:47
PROVIDERS: ATTEND Surgery
DX: K43.2 Incisional hernia without obstruction or gangrene (principal); I10 Essential (primary) hypertension; J44.9 Chronic obstructive pulmonary disease, unspecified; Z79.51 Long term (current) use of inhaled steroids; Z79.899 Other long term (current) drug therapy
CPT/HCPCS: 36415; 85027; 81025; 80076; 80048; 71045; 93005; 93010; 94640; 49560; J2250; J3490 ×4; J0690; J1100 ×2; J3010 ×2; J2310; J2710; J2405; J2704; J7620; C9290; 752

== ENCOUNTER → 2019-04-08 | Outpatient (CLI) | payer MEDICAID ==
--- NOTE | 2019-04-08 14:57 | WOMENS IMAGING REPORT ---
EXAM DESCRIPTION: BILAT SCREENING MAMMO W/CAD COMPLETED DATE/TIME: 04/08/2019 2:14 pm REASON FOR STUDY: Z12.31 BILATERAL MAMMOGRAM SCREENING Z12.31 ENCNTR SCREEN MAMMOGRAM FOR MALIGNANT NEOPLASM OF JOHNATHAN COMPARISON: 2017 EXAM PARAMETERS: Standard craniocaudal and mediolateral oblique views of each breast recorded using digital acquisition. Read with the assistance of CAD. .[facility] - [employer] Version 9.2 LIMITATIONS: None. FINDINGS: No suspicious masses, suspicious calcifications or architectural distortion. No areas of c oncern. IMPRESSION: Negative MAMMOGRAM. BIRADS 1 BREAST DENSITY: b. There are scattered areas of fibroglandular density. BIRAD: ASSESSMENT: 1 NEGATIVE RECOMMENDATION: ROUTINE SCREENING COMMENT: The patient has been notified of the results by letter per MQSA requirements. Additional no tification policies are in place for contacting patient with suspicious or incomplete findings. Quality ID #225: The [employer] recommends an annual screening mammogram for women aged 40 years or over. This facility utilizes a reminder system to ensure that all patients receive reminder letters, and/or direct phone calls for appointments. This includes reminders for routine scr eening mammograms, diagnostic mammograms, or other Breast Imaging Interventions when appropriate. Th is patient will be placed in the appropriate reminder system. TECHNICAL DOCUMENTATION: FINDING NUMBER: (1) ASSESSMENT: (1) JOB ID: [id number] [email or web address]- All Rights Reserved Reading location - IP/workstation name: [email or web address]
== END ==
LOC: WI 14:01
PROVIDERS: ATTEND Family Medicine
DX: Z12.31 Encounter for screening mammogram for malignant neoplasm of breast (principal)
CPT/HCPCS: 77067

== ENCOUNTER → 2020-02-02 | Outpatient (CLI) | payer MEDICAID ==
--- NOTE | 2020-02-02 13:44 | RADIOLOGY REPORT (SQ) ---
EXAM DESCRIPTION: LUMBAR SPINE COMPLETE IMAGES COMPLETED DATE/TIME: 02/02/2020 12:58 pm REASON FOR STUDY: LUMBAGO WITH SCIATICA, UNSPECIFIED SIDE M54.40 LUMBAGO WITH SCIATICA, UNSPECIFIED SIDE COMPARISON: None. NUMBER OF VIEWS: Five views including obliques. TECHNIQUE: AP, lateral, oblique, and sacral radiographic images acquired of the lumbar spine. LIMITATIONS: None. FINDINGS: MINERALIZATION: Normal. SEGMENTATION: Normal. No transitional anatomy. ALIGNMENT: Normal. VERTEBRAE: Maintained height. No fracture or worrisome bone lesion. DISCS: There is mild narrowing of the disc at L5-S1. POSTERIOR ELEMENTS: Hypertrophic facet changes from L3-S1. HARDWARE: None in the spine. PARASPINAL SOFT TISSUES: Normal. PELVIS: Intact as visualized. No fractures or worrisome bone lesions. SI joints intact. OTHER: No other significant finding. IMPRESSION: Mild degenerative disc changes. Facet arthropathy most prominent at L5-S1. TECHNICAL DOCUMENTATION: JOB ID: [id number] 2010 [employer]- All Rights Reserved Reading location - IP/workstation name: [email or web address]
== END ==
LOC: OD 12:22
PROVIDERS: ATTEND Family Medicine
DX: M51.16 Intervertebral disc disorders with radiculopathy, lumbar region (principal)
CPT/HCPCS: 72110

== ENCOUNTER 2020-04-04 07:57 | Day surgery (SDC) | payer MEDICAID ==
[~2020-04-04 07:57] MED LIST changes: -BUPIVACAINE HCL 0.25% /EPINEPHRINE INJ/PF 30 ML SDV ONE; -CEFAZOLIN 1 GM/D5W RTU 1 GM/50 ML RTUPB IV PRN; +PROPOFOL INJ 200 MG/20 ML VIAL IV ONE
[2020-04-04 10:10] VITALS: BP 147/50
--- NOTE | 2020-04-04 12:08 | Operative Report ---
Operative Report DATE OF SURGERY: 04/04/20 Operative Report: Risk, benefits and alternatives of the procedure including the risk of bleeding, surgery have been explained to the patient in detail and informed consent has been obtained. Patient is taken back to the endoscopy suite and placed in the left, lateral decubital position. Timeout was called. Propofol medication is administered. Rectal examination is done which did not reveal any masses, tears or fissures. An Olympus videoscope was introduced into the patient's rectum and subsequently advanced all the way to the cecum. Cecum was identified by the usual anatomical landmarks of the ileocecal valve as well as the appendiceal office. Photodocumentation is obtained. Scope was then sequentially pulled back via the various segments of the colon including the ascending colon, hepatic flexure, transverse colon, splenic flexure, descending colon finally into the rectosigmoid portions of the colon. Retroflexion maneuver is performed. The risks benefits and alternatives of the procedure explained to the patient in detail and informed consent is obtained.A GIF Olympus video scope was inserted into the patient's mouth and hypopharynx, the esophagus is identified intubated and insufflated, the scope was then advanced through the esophagus stomach and duodenum, retroflexion maneuver is done the esophagus stomach and first and second portions of the duodenum examined PREOPERATIVE DIAGNOSIS: Colorectal cancer screening. Dysphagia POSTOPERATIVE DIAGNOSIS: 1. Small pedunculated polyp noted in the cecum removed via snare polypectomy. 2. Sessile polyp removed via snare polypectomy in the area of the hepatic flexure. 3. 2 other sessile polyps noted in the area of the descending colon/sigmoid colon removed via snare polypectomy and retrieved. 4. 3 rectal polyps are removed via snare polypectomy and retrieved. There are total of 7 polyps. Internal hemorrhoids. Schatzki's ring status post breakage. Gastritis status post biopsy. Rule out Solitario's esophagus OPERATION: Colonoscopy with snare polypectomy, extended procedure. EGD with biopsy SURGEON: GEORGINA STOVER ANESTHESIA: LMAC TISSUE REMOVED OR ALTERED: As noted above. COMPLICATIONS: None. ESTIMATED BLOOD LOSS: None. INTRAOPERATIVE FINDINGS: As noted above. PROCEDURE: Patient tolerated the procedure well. No immediate postprocedure complications are noted. Patient is discharged in good condition. Discharge date 04/04/2020. Discharge diet: Regular. Discharge activity: Regular. 2 to 3-week follow-up to discuss findings. Patient is instructed call the office or proceed to the emergency room should there be any further problems or questions. Wait on the pathology. Given the number of polyps and the various type of polyps I am anticipating a combination of a tubular adenoma and also possibly sessile serrated polyps. This will require colonoscopy in 6 months.
--- NOTE | 2020-04-04 12:11 | Operative Report ---
Operative Report DATE OF SURGERY: 04/04/20 Operative Report: The risk, benefits and alternatives of the procedure including the risk of bleeding, perforation requiring surgery have been explained to the patient in detail and informed consent has been obtained. Patient is placed in left, lateral decubital position. Timeout was called. Propofol medication is administered. Rectal examination is done which did not reveal any masses, tears or fissures. An Olympus videoscope was introduced into the patient's rectum. Scope was then carefully advanced all the way to the cecum. The cecum was identified by the usual anatomical landmarks including the ileocecal valve as well as the appendiceal office. Photodocumentation is obtained the scope was then sequentially pulled back via the various segments of the colon including the ascending colon, back flexure, transverse colon, splenic flexure, descending colon and into the rectosigmoid portions of the colon. Retroflexion maneuver is performed. PREOPERATIVE DIAGNOSIS: Positive Cologuard POSTOPERATIVE DIAGNOSIS: Large sigmoid colon polyp was removed via snare polypectomy and retrieved. It is greater than 1 cm. Rectal polyp removed via snare polypectomy and retrieved; is also greater than 1 cm. Moderate sigmoid diverticulosis. Mild internal hemorrhoids OPERATION: Colonoscopy with snare polypectomy SURGEON: GEORGINA STOVER ANESTHESIA: LMAC TISSUE REMOVED OR ALTERED: As noted above. COMPLICATIONS: None. ESTIMATED BLOOD LOSS: None. INTRAOPERATIVE FINDINGS: As noted above. PROCEDURE: Patient tolerated the procedure well. No immediate postprocedure complications are noted. Patient is discharged in good condition. Discharge date 04/04/2020. Discharge diet: Regular. Discharge activity: Regular. 2 to 3-week follow-up to discuss findings. Patient is instructed call the office or proceed to the emergency room should there be any further problems or questions. We will wait on the pathology and suspect will need follow-up colonoscopy 6 months from now.
== END 2020-04-04 10:10 | disposition home or self-care (01) ==
LOC: END 07:57
PROVIDERS: ATTEND Internal Medicine Gastroenterology
DX: K29.50 Unspecified chronic gastritis without bleeding (principal); K63.5 Polyp of colon; K20.90 Esophagitis, unspecified without bleeding; K22.2 Esophageal obstruction; K64.8 Other hemorrhoids; K57.30 Diverticulosis of large intestine without perforation or abscess without bleeding; R13.14 Dysphagia, pharyngoesophageal phase; J44.9 Chronic obstructive pulmonary disease, unspecified; Z03.818 Encounter for observation for suspected exposure to other biological agents ruled out; Z80.0 Family history of malignant neoplasm of digestive organs; Z79.899 Other long term (current) drug therapy; M51.36 Other intervertebral disc degeneration, lumbar region; M51.34 Other intervertebral disc degeneration, thoracic region; Z79.891 Long term (current) use of opiate analgesic
CPT/HCPCS: 43239; 45380; 45385; 87635; 88342 ×2; 88305 ×2; 00813; J2704; C9803; 813

== ENCOUNTER → 2020-04-30 | Outpatient (CLI) | payer MEDICAID ==
--- NOTE | 2020-04-30 12:27 | RADIOLOGY REPORT (SQ) ---
EXAM DESCRIPTION: HIP RIGHT AP/LATERAL IMAGES COMPLETED DATE/TIME: 04/30/2020 12:17 pm REASON FOR STUDY: S79.911A UNSPECIFIED INJURY OF RIGHT HIP, INITIAL ENCOUNTER S79.911A UNSPECIFIED INJURY OF RIGHT HIP, INITIAL ENCOUNTER COMPARISON: None. NUMBER OF VIEWS: Two views. TECHNIQUE: AP and frog-leg view of the right hip. LIMITATIONS: None. FINDINGS: MINERALIZATION: Normal. RIGHT HIP: No fracture or dislocation. No worrisome bone lesions. No contour deformity. No joint sp parmjit narrowing. OPPOSITE HIP: No fracture or dislocation. No worrisome bone lesions. SOFT TISSUES: No findings. OTHER: No other significant finding. IMPRESSION: NEGATIVE STUDY OF THE RIGHT HIP. NO EXPLANATION FOR PAIN. TECHNICAL DOCUMENTATION: JOB ID: [id number] 2010 [employer]- All Rights Reserved Reading location - IP/workstation name: [email or web address]
== END ==
LOC: RAD 11:50
PROVIDERS: ATTEND Family Medicine
DX: S79.911A Unspecified injury of right hip, initial encounter (principal); X58.XXXA Exposure to other specified factors, initial encounter

== ENCOUNTER → 2020-05-11 | Outpatient (CLI) | payer MEDICAID ==
--- NOTE | 2020-05-11 08:11 | WOMENS IMAGING REPORT ---
EXAM DESCRIPTION: U/S ABDOMEN LIMITED IMAGES COMPLETED DATE/TIME: 05/11/2020 7:55 am REASON FOR STUDY: R10.11 RIGHT UPPER QUADRANT PAIN R10.11 RIGHT UPPER QUADRANT PAIN Z12.31 ENCNTR SCREEN MAMMOGRAM FOR MALIGNANT NEOPLASM OF JOHNATHAN COMPARISON: None. TECHNIQUE: Dynamic and static grayscale images acquired of the abdomen and recorded on PACS. Additio nal selected color Doppler and spectral images recorded. LIMITATIONS: None. FINDINGS: PANCREAS: The head and body of the pancreas are normal echogenicity. The tail is obscure d by overlying bowel gas. LIVER: The liver measures 14.0 cm in length, normal size. No masses. Echotexture normal. LIVER VASCULATURE: Normal directional flow of the main portal vein and hepatic veins. GALLBLADDER: Prior cholecystectomy. ULTRASOUND-DETECTED GRAY'S SIGN: Negative. INTRAHEPATIC DUCTS AND COMMON DUCT: CBD measures 6.2 mm in a post cholecystectomy patient. The intra hepatic ducts normal caliber. No filling defects. INFERIOR VENA CAVA: Normal flow. AORTA: The proximal and mid segments of the abdominal aorta are are patent. The distal segment is o bscured by overlying bowel gas. RIGHT KIDNEY: The right kidney measures 10.3 x 4.6 x 5.1 cm, normal size. Normal echogenicity. No so lid or suspicious masses. No hydronephrosis. No calcifications. PERITONEAL AND RIGHT PLEURAL SPACE: No ascites or effusions. OTHER: No other significant findings. IMPRESSION: 1. Prior cholecystectomy. 2. The pancreatic tail and distal segment of the abdominal aorta are obscured by overlying bowel gas . 3. Examination is otherwise unremarkable sonographically. TECHNICAL DOCUMENTATION: JOB ID: [id number] 2010 [employer]- All Rights Reserved Reading location - IP/workstation name: [email or web address]
--- NOTE | 2020-05-11 09:22 | WOMENS IMAGING REPORT ---
EXAM DESCRIPTION: BILAT SCREENING MAMMO W/CAD IMAGES COMPLETED DATE/TIME: 05/11/2020 7:47 am REASON FOR STUDY: Z12.31 ENCOUNTER FOR SCREENING MAMMOGRAM FOR MALIGNANT NEOPLASM OF BREAST R10.11 RIGHT UPPER QUADRANT PAIN Z12.31 ENCNTR SCREEN MAMMOGRAM FOR MALIGNANT NEOPLASM OF JOHNATHAN COMPARISON: 2017 EXAM PARAMETERS: Standard craniocaudal and mediolateral oblique views of each breast recorded using digital acquisition. Read with the assistance of CAD. .[facility] - [employer] Version 9.2 LIMITATIONS: None. FINDINGS: No suspicious masses, suspicious calcifications or architectural distortion. No areas of c oncern. IMPRESSION: NEGATIVE MAMMOGRAM. BIRADS 1 BREAST DENSITY: b. There are scattered areas of fibroglandular density. BIRAD: ASSESSMENT: 1 NEGATIVE RECOMMENDATION: ROUTINE SCREENING COMMENT: The patient has been notified of the results by letter per MQSA requirements. Additional no tification policies are in place for contacting patient with suspicious or incomplete findings. Quality ID #[id number]: The [employer] recommends an annual screening mammogram for women aged 40 years or over. This facility utilizes a reminder system to ensure that all patients receive reminder letters, and/or direct phone calls for appointments. This includes reminders for routine scr eening mammograms, diagnostic mammograms, or other Breast Imaging Interventions when appropriate. Th is patient will be placed in the appropriate reminder system. TECHNICAL DOCUMENTATION: FINDING NUMBER: (1) ASSESSMENT: (1) JOB ID: [id number] 2010 [employer]- All Rights Reserved Reading location - IP/workstation name: [email or web address]
== END ==
LOC: WI 07:05
PROVIDERS: ATTEND Internal Medicine Gastroenterology
DX: Z12.31 Encounter for screening mammogram for malignant neoplasm of breast (principal); R10.11 Right upper quadrant pain
CPT/HCPCS: 76705; 77067